=== PATIENT | male | born 1970 | race Caucasian/White ===

== ENCOUNTER 2020-01-06 10:55 | Observation (INO) ==
[2020-01-06 11:57] LABS: Basophils % 0.2 %; Eosinophils # 0.2 K/mcL (0.0-0.6); Eosinophils % 2.6 %; Lymphocytes # 0.6 K/mcL (0.6-4.6); Lymphocytes % 10.2 %; Mean Corpuscular HGB Conc 31.1 g/dL (31.6-35.5); Mean Corpuscular Hemoglobin 28.2 pg (28.0-33.3); Mean Corpuscular Volume 90.8 fL (83.0-100.0); Mean Platelet Volume 9.9 fL (9.4-12.4); Monocytes # 0.4 K/mcL (0.0-1.3); Monocytes % 7.2 %; Neutrophils # 4.6 K/mcL (1.6-8.9); Platelet Count 140 K/mcL (140-400); Red Blood Count 1.63 M/mcL (4.19-5.50); Red Cell Distribution Width 15.2 % (11.5-14.5); Segmented Neutrophils % 78.8 %; White Blood Count 5.9 K/mcL (4.3-11.1)
[2020-01-06 11:58] LABS: Hemoglobin 4.6 g/dL (12.9-16.9)
[2020-01-06 11:59] LABS: Hematocrit 14.8 % (37.5-50.1)
[2020-01-06] MEDS ORDERED: Naloxone 0.4 MG/ML INJ IVP PRN (13:12)
[2020-01-06] MEDS ORDERED: Mag Hydrox/Al Hydrox/Simeth 30 ML UDC PO PRN (13:12)
[2020-01-06] MEDS ORDERED: MOM Conc 10 ML UD.LIQ PO PRN (13:12)
[2020-01-06] MEDS ORDERED: Acetaminophen 325 MG TABLET PO PRN (13:12)
[2020-01-06] MEDS ORDERED: Ondansetron 4 MG/2 ML VIAL IVP PRN (13:12)
[2020-01-06] MEDS ORDERED: 0.9 % Sodium Chloride 1,000 ML IVC SCH (13:15)
[2020-01-06] MEDS ORDERED: 0.9 % Sodium Chloride 250 ML IVC SCH (13:15)
[2020-01-06 13:53] LABS: Hemoglobin 4.6 g/dL (12.9-16.9)
[2020-01-06 13:54] LABS: Hematocrit 14.6 % (37.5-50.1)
[2020-01-06 19:43] LABS: Hematocrit 16.1 % (37.5-50.1)
[2020-01-06] MEDS ORDERED: Magnesium Oxide 400 MG TABLET PO SCH (21:00)
[2020-01-06] MEDS ORDERED: Mycophenolate Sodium (DR) 180 MG TABLET.DR PO SCH (21:00)
[2020-01-06 23:05] LABS: Hematocrit 16.7 % (37.5-50.1)
[2020-01-06 23:16] LABS: Hemoglobin 5.4 g/dL (12.9-16.9)
[2020-01-06 23:26] VITALS: BP 134/66
[2020-01-06 23:52] LABS: Hematocrit 16.2 % (37.5-50.1)
[2020-01-06 23:53] LABS: Hemoglobin 5.3 g/dL (12.9-16.9)
[2020-01-07] MEDS ORDERED: Pantoprazole 40 MG VIAL IVP SCH (06:00)
[2020-01-07] MEDS ORDERED: TACROLIMUS 0.5 MG PO SCH (09:00)
[2020-01-07] MEDS ORDERED: Loratadine 10 MG TABLET PO SCH (09:00)
[2020-01-07] MEDS ORDERED: predniSONE 5 MG TABLET PO SCH (09:00)
[2020-01-08] MEDS ORDERED: Ergocalciferol (VIT D2) 50,000 UNIT (1.25MG) CAP PO SCH (09:00)
== END 2020-01-07 02:26 ==
LOC: EMEROOPIK 10:55 → INPPIK 10:55
PROVIDERS: ADMIT Family Medicine; ATTEND Family Medicine